=== PATIENT | male | born 1945 | race Two or more races ===

== ENCOUNTER 2024-10-08 11:29 | Emergency (ER) | payer OTHER ==
[~2024-10-08] VITALS: Ht 170.2 cm; Wt 59.0 kg
[2024-10-08] MEDS ORDERED: METFORMIN HCL500 M1 PO (12:33)
[2024-10-08] MEDS ORDERED: INBRIJA42 MG IH (12:33)
[2024-10-08] MEDS ORDERED: CARBIDOPA-LEVO1 EA12 PO (12:33)
[2024-10-08] MEDS ORDERED: LOVASTATIN40 MG PO (12:33)
[2024-10-08] MEDS ORDERED: ZANAFLEX2 MG PO (12:33)
[2024-10-08] MEDS ORDERED: GABAPENTIN100 M2 PO (12:33)
[2024-10-08] MEDS ORDERED: LOSARTAN-HCTZ1 EAC1 PO (12:34)
[2024-10-08] MEDS ORDERED: CARBIDOPA-LEVO1 EA10 (12:34)
[2024-10-08] MEDS ORDERED: KETOROLAC TROMETHAMINE 60 MG VIAL IM STA (13:46)
[2024-10-08] MEDS ORDERED: KETOROLAC TROMETHAMINE 60 MG VIAL IM ONE (13:49)
== END 2024-10-08 15:46 | disposition home or self-care (01) ==
LOC: ER 11:31
DX: S20.219A Contusion of unspecified front wall of thorax, initial encounter (principal); W19.XXXA Unspecified fall, initial encounter; Y93.E1 Activity, personal bathing and showering; Y92.091 Bathroom in other non-institutional residence as the place of occurrence of the external cause; Y99.8 Other external cause status; Z88.8 Allergy status to other drugs, medicaments and biological substances
CPT/HCPCS: 70450; 71250; 72125; 96372; 99284; J1885

== ENCOUNTER 2024-10-12 13:08 | Emergency (ER) | payer OTHER ==
[~2024-10-12] VITALS: Ht 182.9 cm; Wt 77.1 kg
[~2024-10-12 13:08] MED LIST: CARBIDOPA-LEVO1 EA10; CARBIDOPA-LEVO1 EA12 PO; GABAPENTIN100 M2 PO; INBRIJA42 MG IH; LOSARTAN-HCTZ1 EAC1 PO; LOVASTATIN40 MG PO; METFORMIN HCL500 M1 PO; ZANAFLEX2 MG PO
[2024-10-12 15:11] VITALS: BP 126/60; O2SAT 98
[2024-10-12] MEDS ORDERED: FAMOtidine 10 MG/ML (4ML VIAL) IV ONE (16:15)
[2024-10-12] MEDS ORDERED: KETOROLAC TROMETHAMINE 60 MG VIAL IM ONE ×2 (16:15→16:22)
[2024-10-12] MEDS ORDERED: FAMOTIDINE/PF 20 MG/2 ML VIAL ONE (16:22)
[2024-10-12] MEDS ORDERED: BARIUM SULFATE 450 ML ORAL.SUSP PO ONE (16:30)
[2024-10-12 17:05] LABS: HEMATOCRIT 33.8 % (39.0-48.0); HEMOGLOBIN 11.7 g/dL (13-16.00); MEAN CELL VOLUME 92.8 fL (80.0-100.00); MEAN CORPUSCULAR HGB CONC 34.5 g/dl (32.0-36.0); PLATELET COUNT 267 K/uL (150-450); RED BLOOD COUNT 3.64 M/uL (4.00-6.00); RED CELL DISTRIBUTION WIDTH 13.4 % (11.5-14.5)
[2024-10-12 17:30] LABS: ALBUMIN 3.3 gm/dL (3.4-5.0); BILIRUBIN TOTAL 0.57 mg/dL (0.3-1.2); CALCIUM 9.3 mg/dL (8.5-10.1); CREATININE SERUM 0.69 mg/dL (0.70-1.30); GFR 110.89; GLOBULINA 3.8 G/DL (2.4-3.5); POTASSIUM 3.27 mEq/L (3.5-5.1); TOTAL PROTEIN 7.1 gm/dL (6.4-8.2)
[2024-10-12 20:36] LABS: PH,URINE 5.5 (5.0-8.0); URINE APPEARANCE Clear; URINE BILIRRUBIN Negative (NEGATIVE); URINE BLOOD Negative; URINE COLOR Yellow; URINE GLUCOSE Negative (NEGATIVE); URINE KETONE Trace (NEGATIVE); URINE LEUKOCYTE Negative; URINE NITRATE Negative; URINE PROTEIN Negative (NEGATIVE); URINE UROBILINOGEN 0.2 E.U./dl
[2024-10-12 20:37] LABS: URINE BACTERIA 53.8 uL (0.0-1933); URINE CAST 1.47 uL (0.0-1.40); URINE EPITHELIAL CELLS 1.4 uL (0.0-38.8); URINE RBC 9.2 uL (0.0-20.8); URINE WBC 2.2 uL (0.0-23.2)
[2024-10-12] MEDS ORDERED: MAGNESIUM HYDROXIDE 400 MG/5 ML ML PO ONE (23:45)
[2024-10-12] MEDS ORDERED: PROBIOTIC1 EAC2 PO (23:45)
[2024-10-12] MEDS ORDERED: PEPCID AC20 MG PO (23:45)
[2024-10-12] MEDS ORDERED: LACTULOSE 20 G/30 ML BLIST.PACK PO ONE (23:45)
[2024-10-12] MEDS ORDERED: DICY20TA PO (23:45)
[2024-10-12] MEDS ORDERED: MINERAL OIL 30 ML BLIST.PACK PO ONE (23:45)
[2024-10-12] MEDS ORDERED: MINERAL OIL 30 ML BLIST.PACK ONE (23:47)
[2024-10-12] MEDS ORDERED: MAG HYDROX/ALUMINUM HYD/SIMETH 30 ML BLIST.PACK PO ONE (23:47)
[2024-10-12] MEDS ORDERED: LACTULOSE 20 G/30 ML BLIST.PACK ONE (23:48)
== END 2024-10-13 00:35 | disposition home or self-care (01) ==
LOC: ER 13:10
PROVIDERS: General Practice
DX: K59.00 Constipation, unspecified (principal); R10.9 Unspecified abdominal pain; I10 Essential (primary) hypertension; E11.9 Type 2 diabetes mellitus without complications; Z79.84 Long term (current) use of oral hypoglycemic drugs; Z88.8 Allergy status to other drugs, medicaments and biological substances
CPT/HCPCS: 36415; 74177; 96365; 96372; 99284; J1885; J3490; Q9965